=== PATIENT | male | born 1955 | race Caucasian/White ===

== ENCOUNTER → 2024-12-13 09:28 | Outpatient (REF) | payer MEDICARE, OTHER, SELFPAY | LOC: HWRAD 09:28 | PROVIDERS: ATTENDING PHYSICIAN Physician Assistant; FAMILY PHYSICIAN Student in an Organized Health Care Education/Training Program | DX: R10.10 Upper abdominal pain, unspecified (principal); R07.89 Other chest pain; C67.9 Malignant neoplasm of bladder, unspecified | CPT/HCPCS: 76700 ==

== ENCOUNTER 2024-12-27 06:51 | Emergency (ER) | payer MEDICARE, OTHER, SELFPAY ==
[2024-12-27 06:54] VITALS: BP 126/78
--- NOTE | 2024-12-27 07:37 | ED.GENMED ---
History of Present Illness
General
Chief Complaint: Chest Pain
Time Seen by Provider: 12/27/24 07:37
History of Present Illness
History of Present Illness:
PAST MEDICAL HISTORY AND REVIEW OF OLD RECORDS
- High blood pressure, GERD, bladder cancer. I reviewed records, the patient had [facility]uelight TURBT [address] Best.
Note:
CHIEF COMPLAINT(S)
Chest pressure, intermittent over the past few days, with some episodes of lightheadedness.
HISTORY OF PRESENT ILLNESS
The patient is a 69-year-old male who presented with complaints of intermittent chest pressure for the past few days. He describes the chest discomfort as a pressure sensation that started a couple of days ago and has been worsening in frequency.
The discomfort is exacerbated by physical activity, such as sitting up from bed, and he experienced more noticeable symptoms this morning when he first got up at approximately 3:00 AM. He also reported playing golf a few days ago, with episodes of
lightheadedness and chest discomfort during the game. Although he noticed the chest pressure decreases and returns throughout the day, it has been occurring more frequently. He denies a history of coronary artery disease to his knowledge but had a
cardiac evaluation in 2008, including a stress test which was reportedly normal. He does not currently experience chest pain but was advised to notify staff if the discomfort returns. The patient has a history of gastroesophageal reflux disease and
is compliant with his prescribed medications for hypertension and hyperlipidemia.
ADDITIONAL HISTORY OBTAINED FROM SOURCES OTHER THAN THE PATIENT
No additional sources beyond the patient were identified in the conversation.
EXTERNAL RECORDS REVIEWED
The patient recalls a previous emergency room visit in 2008, where he underwent a cardiac evaluation, including a stress test. The results at that time were normal, and he was informed that his heart experienced episodes of arrhythmia that resolved
on their own.
CHRONIC MEDICAL CONDITIONS SIGNIFICANTLY AFFECTING CARE
The patient has a history of hypertension and hyperlipidemia, for which he takes medication. He also has a history of gastroesophageal reflux disease.
SOCIAL HISTORY
The patient does not have a history of smoking and denies any history of diabetes.
FAMILY HISTORY
The patients father had a history of a myocardial infarction at the age of 65.
REVIEW OF SYSTEMS
- Cardiovascular: Intermittent chest pressure, more frequent in recent days. Described as a pressure sensation, exacerbated by physical exertion.
- Neurological: Episodes of lightheadedness noted during exertion.
- Gastrointestinal: History of gastroesophageal reflux disease, currently not experiencing significant symptoms.
PHYSICAL EXAM
General: Alert, no acute distress.
Skin: Warm, dry.
Head: Normocephalic, atraumatic.
Neck: Supple, trachea midline.
Eye, Ears, Nose, Mouth, and Throat: Oral mucosa moist.
Cardiovascular: Normal peripheral perfusion, No edema. Heart sounds regular. Lungs are clear.
Respiratory: Respirations are non-labored.
Gastrointestinal: Abdomen nondistended. Suggestion of rectus diastasis on examination.
Back: Normal range of motion, Normal alignment.
Musculoskeletal: Normal range of motion, normal strength.
Neurological: Alert and oriented to person, place, time, and situation, No focal neurological deficit observed.
Psychiatric: Cooperative, appropriate mood & affect.
PROBLEM LIST
- Intermittent chest pressure, exertion-related.
- History of hypertension.
- History of hyperlipidemia.
- History of gastroesophageal reflux disease.
- Family history of myocardial infarction in father at age 65.
PLAN
1. Conduct cardiac blood work to evaluate current cardiac status.
2. Administer aspirin and monitor for any return of symptoms.
3. Consider administration of nitroglycerin if the patient experiences further chest pain.
4. Continue home medications for hypertension and hyperlipidemia.
5. Further evaluation with an ECG and monitoring of symptoms.
DIFFERENTIAL DIAGNOSIS
The Differential Diagnosis includes, in no particular order and is not limited to:
1. Stable angina
2. Unstable angina
3. Myocardial infarction
4. Aortic dissection
5. Pulmonary embolism
6. Gastroesophageal reflux disease exacerbation
7. Costochondritis
8. Pericarditis
9. Anxiety-induced chest pain
10. Heart failure
RADIOLOGY
- Chest x-ray obtained and is negative
EKG
- Sinus 54, leftward axis deviation, nonspecific ST abnormality, no significant change from 06/22/2020
LABS
- Initial troponin less than 0.012, potassium 3.4, white count 4.7
SUMMARY OF ENCOUNTER
The patient, a 69-year-old male, presented to the emergency department with complaints of intermittent chest pressure and lightheadedness over the past few days. Cardiac evaluation through repeated blood work was conducted and found to be normal,
raising the possibility of a non-cardiac origin for his symptoms, including gastroesophageal causes. The patient has a history of hypertension, hyperlipidemia, and gastroesophageal reflux disease, which must be considered in the differential
diagnosis. Despite normal findings, the patient will be referred to a sole layer hand for follow-up, as cardiac involvement cannot be entirely ruled out. The patient was advised to continue home medications and to manage symptoms with esomeprazole and
immediate relief agents such as famotidine and an lihn-adx-gspkyrj antacid, like Maalox. The patient was instructed to seek medical attention if symptoms worsen.
PLAN
1. Refer the patient to a local sole layer hand for further evaluation to ensure cardiac-related issues are comprehensively assessed.
2. Advise the patient to continue taking esomeprazole for gastroesophageal reflux disease.
3. Recommend qdtv-nqn-jphbxar famotidine or Maalox for more immediate symptom relief.
4. Monitor for any changes or worsening of symptoms and return to the emergency department if necessary.
FOLLOW-UP INSTRUCTIONS
The patient was given contact information for a local sole layer hand and advised to arrange a follow-up appointment as soon as possible to further evaluate the cardiac status.
MEDICATION RECONCILIATION
- Advise to continue esomeprazole (Nexium).
- Cmny-qnh-kiywqcz famotidine (Pepcid) and an antacid such as Maalox recommended for immediate symptom relief.
MEDICAL DECISION MAKING
-Complexity of Data Reviewed: Chronic conditions affecting care include hypertension, hyperlipidemia, and gastroesophageal reflux disease. Differential diagnoses considered: stable angina, unstable angina, myocardial infarction, aortic dissection,
pulmonary embolism, gastroesophageal reflux disease exacerbation, costochondritis, pericarditis, anxiety-induced chest pain, and heart failure.
-Data:
Category 1
Non-emergency department records reviewed. External record reviewed: Previous emergency room visit in 2008 with normal cardiac evaluation including stress test.
Category 2
Clinical information was obtained from the patient directly with no additional historians.
-Risk:
Consideration of Admission/Observation: Escalation of care including admission/observation was considered given the complexity and risk of the patients presenting complaint, exam findings, and underlying comorbidities. However, ultimately the
patient is deemed safe for outpatient management with close follow-up. Reasoning: Work-up reassuring, does not reveal any acute life/organ threatening processes, symptoms are well controlled upon reevaluation, reexamination is reassuring, vitals are
stable, the patient agreed with discharge plan, and is reliable for follow-up.
DIAGNOSIS
- Chest pain, unspecified (ICD-10: R07.9)
- Gastroesophageal reflux disease (ICD-10: K21.9)
UPDATE
- As of 7:50 AM on initial evaluation, the patient denied any ongoing chest pain. He states that the chest pressure earlier was intermittently occurring with increasing frequency since 3 AM. Aspirin given.
- I reassessed patient at 9:25 AM. The patient still has no pain. Will recheck another troponin. However initial cardiac blood work unremarkable. He states he started having some issues also about 2 weeks ago and started take Pepcid and/or
Maalox. He is compliant with taking Nexium daily.
- On reassessment at 10:20 AM, the patient continues to feel well and has had no recurrence of symptoms throughout his stay in the emergency department. 2 sets of cardiac enzymes negative. Encouraged him to follow-up with sole layer hand as an
outpatient (Dr. Chamorro/chest pain hotline use)
Phy Exam
Physical Exam
Physical Exam:
See HPI
Scores
Heart Score for Chest Pain Patients
STEMI patient?: Not applicable
Course
Orders/Labs/Results
Orders:
Orders
12/27/24 06:54
Electrocardiogram (*1) Urgent
Reason for Study: Chest Pain
EKG- Treatment ONCE
12/27/24 07:49
Aspirin 325 mg PO NOW STA
Nitroglycerin Sublingual [Nitrostat (Sublingual)] 0.4 mg SL NOW STA
12/27/24 07:50
CR Chest - 2 Views Urgent
Comment:
Reason For Exam: cp
12/27/24 07:53
Comprehensive Metabolic Panel Urgent
Troponin I Urgent
12/27/24 07:55
Complete Blood Count/With Diff Urgent
12/27/24 09:37
Troponin I Urgent
Abnormal Lab Results
12/27/24 12/27/24
07:53 07:55
WBC 4.7 L 10^3/uL
(4.8-10.8)
MCH 32.3 H pg
(27.0-31.0)
Abs Immat Gran (auto) 0.1 H 10^3/uL
(0-0.05)
Absolute Lymphs (auto) 0.8 L 10^3/uL
(1.2-3.4)
Immature Gran % 2.6 H %
(0-0.5)
Lymphocytes % 16.8 L %
(20.5-51.1)
Monocytes % 10.9 H %
(1.7-9.3)
Potassium 3.4 L mmol/L
(3.5-5.1)
Glucose 109 H mg/dl
(70-99)
12/27/24 07:55
12/27/24 07:53
Vital Signs
Initial and Last Documented VS:
Initial Vital Signs
Temp Pulse Resp BP Pulse Ox
36.6 C 61 16 126/78 97
12/27/24 06:54 12/27/24 06:54 12/27/24 06:54 12/27/24 06:54 12/27/24 06:54
Last Documented Vital Signs
Temp Pulse Resp BP Pulse Ox
36.6 C 61 16 126/78 97
12/27/24 06:54 12/27/24 06:54 12/27/24 06:54 12/27/24 06:54 12/27/24 07:38
*Pulse Oximetry
SaO2: 97
Oxygen Mode of Delivery: Room air
Patient hypoxic: no
*Critical Care Note
Total Time (30-74mins, 75-104mins- exclusive of procedures): Not Applicable
ED Attending Note
-
Portions of this chart may have been created with voice recognition software.� Occasional wrong word or��sound alike� substitutions may have occurred due to the inherent limitations of voice recognition software.
Discharge Plan
Departure
Patient Disposition: Home (Routine Discharge)
Date of Disposition: 12/27/24
Time of Disposition: 10:20
Patient with high blood pressure during this ER visit?: Yes
Discharge Problem:
Chest pain
Instructions: Chest Pain CBC Follow Up, BLOOD PRESSURE
Prescriptions:
No Action
amlodipine 10 MG tablet
10 mg PO DAILY
esomeprazole magnesium [Nexium 24HR] 20 MG capsule,delayed release(DR/EC)
20 mg PO DAILY
docosahexaenoic acid-epa 1 CAP capsule
2,400 mg PO DAILY
valsartan-hydrochlorothiazide 1 EACH tablet
1 tab PO DAILY
Red Yeast Rice
600 mg PO DAILY
Referrals:
Trang Blackburn MD [Family Provider, Internal Medicine]
Juan Jose Chamorro MD [Active, Cardiology]
Activity Restrictions/Additional Instructions:
Follow-up with your primary care doctor and I have also given you the contact information for a local sole layer hand to follow-up with, Dr. Chamorro. 2 sets of cardiac blood work are both normal and EKG is unremarkable. However, I would still like
you to see the sole layer hand in case he wants to at least do stress testing on you. Continue Nexium and consider taking Pepcid/Maalox for more immediate relief.
Interventions
Interventions:
*Risk Screen - Suicide Last Done: 12/27/24 06:55
*Neglect/Abuse Screening Last Done: 12/27/24 06:55
Discharge Date and Time
Print Language: FRISIAN
[2024-12-27] MEDS: ASPIRIN 325 MG PO (07:58)
[2024-12-27 08:00] VITALS: BP 116/77
[2024-12-27 08:17] LABS: Hematocrit 47.4 % (39.0-52.0); Hemoglobin 16.5 g/dL (13.0-18.0); Mean Corp Hgb Conc. 34.8 g/dL (33.0-37.0); Mean Corpuscular Volume 92.8 fL (80.0-94.0); Nucleated Red Blood Cells % 0 % (-); Platelet Count 226 10^3/uL (130-400); Red Cell Dist. Width 12.4 % (11.5-14.5)
[2024-12-27 08:19] VITALS: BP 120/79
[2024-12-27 08:29] LABS: ALT (SGPT) 37 U/L (0-50); AST (SGOT) 26 U/L (17-59); Albumin 4.2 g/dl (3.5-5.0); Alkaline Phosphatase 64 U/L (38-126); Blood Urea Nitrogen 15 mg/dl (9-20); Calcium 9.2 mg/dl (8.4-10.2); Carbon Dioxide 30 mmol/L (22-30); Chloride 104 mmol/L (98-107); Glucose 109 mg/dl (70-99); Potassium 3.4 mmol/L (3.5-5.1); Sodium 141 mmol/L (135-145); Total Protein 6.9 g/dl (6.3-8.2); eGFR > 60.00
[2024-12-27 08:39] LABS: Troponin I < 0.012 ng/ml
[2024-12-27 09:00] VITALS: BP 117/77
[2024-12-27 10:00] VITALS: BP 135/83
[2024-12-27 10:11] LABS: Troponin I < 0.012 ng/ml
== END 2024-12-27 11:08 | disposition home or self-care (01) ==
LOC: EMR 06:51
PROVIDERS: EMERGENCY PHYSICIAN Emergency Medicine; FAMILY PHYSICIAN Student in an Organized Health Care Education/Training Program
DX: R07.9 Chest pain, unspecified (principal); I10 Essential (primary) hypertension; K21.9 Gastro-esophageal reflux disease without esophagitis; E78.5 Hyperlipidemia, unspecified; Z82.49 Family history of ischemic heart disease and other diseases of the circulatory system; Z85.51 Personal history of malignant neoplasm of bladder
CPT/HCPCS: 99284; 71046; 80053; 84484; 85025; 93005

== ENCOUNTER → 2025-01-12 08:18 | Outpatient (REF) | payer MEDICARE, OTHER, SELFPAY | LOC: HWRCS 08:18 | PROVIDERS: ATTENDING PHYSICIAN Internal Medicine; FAMILY PHYSICIAN Student in an Organized Health Care Education/Training Program | DX: R07.89 Other chest pain (principal); I10 Essential (primary) hypertension; E78.00 Pure hypercholesterolemia, unspecified; I44.0 Atrioventricular block, first degree | CPT/HCPCS: 93306 ==

== ENCOUNTER → 2025-01-13 11:28 | Outpatient (REF) | payer MEDICARE, OTHER, SELFPAY | LOC: HWRCS 11:28 | PROVIDERS: ATTENDING PHYSICIAN Internal Medicine; FAMILY PHYSICIAN Student in an Organized Health Care Education/Training Program | DX: R07.89 Other chest pain (principal); I10 Essential (primary) hypertension; I44.0 Atrioventricular block, first degree | CPT/HCPCS: 78452; 93017; A9500 ==

== ENCOUNTER 2025-03-31 06:16 | Day surgery (SDC) | payer MEDICARE, OTHER, SELFPAY | END 2025-03-31 10:49 | disposition home or self-care (01) | LOC: GI 06:16 | PROVIDERS: ATTENDING PHYSICIAN Specialist | DX: R10.13 Epigastric pain (principal); K31.89 Other diseases of stomach and duodenum | CPT/HCPCS: 43239; 88305; 88342 ==